=== PATIENT | male | born 1955 | race Caucasian/White ===

== ENCOUNTER → 2019-08-11 | Outpatient (CLI) | payer MEDICARE ==
--- NOTE | 2019-08-11 17:44 | MR ---
EXAMINATION TYPE: MR shoulder RT wo con DATE OF EXAM: 08/11/2019 COMPARISON: HISTORY: Right shoulder pain Technique: Multiplanar, multiecho imaging on a 3.0 Mikayla magnet is performed through the shoulder. Findings: Long head of the biceps tendon is within the bicipital groove. Fluid surrounds the long hea d of the biceps tendon. Moderate tendinosis of the long head of the biceps tendon should be considere d. No significant joint effusion is evident. Glenoid labrum as visualized on this noncontrast study appe ars intact. Rotator cuff tendons are evaluated. There may be a perforation of the anterior portion of the infras pinatus tendon near its insertion. Series 501 image 18 noted tendon or muscle retraction is evident. Fluid in the subacromial bursa and subdeltoid bursa are adjacent to the supraspinatus tendon. Moderat e tendinosis may be present. The acromioclavicular junction is hypertrophied which can contribute to impingement syndrome. Small a mount of fluid is in the subacromial bursa. There is some fluid in the subdeltoid bursa. IMPRESSIONS: 1. There is at least moderate tendinosis of the long head of the biceps tendon and likely of the supr aspinatus tendon. 2. Small perforation at the anterior infraspinatus tendon should be considered.
== END ==
LOC: RADMRIMAIN 12:28
PROVIDERS: ATTEND Orthopaedic Surgery
DX: M75.81 Other shoulder lesions, right shoulder (principal)

== ENCOUNTER 2019-09-07 05:46 | Day surgery (SDC) | payer MEDICARE ==
[2019-09-05 08:47] VITALS: BMI 26.5
--- NOTE | 2019-09-06 14:13 | HP ---
HISTORY AND PHYSICAL DATE OF SURGERY: 09/07/2019 Roger Mayorga is a 63-year-old patient seen with progressive right shoulder pain. We discussed options for treatment. He elected to proceed with arthroscopy. Consent was obtained. PAST MEDICAL HISTORY: Hyperlipidemia. PAST SURGICAL HISTORY: Herniorrhaphy, left knee arthroscopy, knee arthroscopy. DAILY MEDICATIONS: Pravastatin. ALLERGIES: NONE. SOCIAL HISTORY: Denies current tobacco use. PHYSICAL EVALUATION OF RIGHT SHOULDER: Flexion is 140 degrees, abduction is 130 degrees, external rotation is 50 degrees with weakness. There is tenderness along the anterolateral acromion/rotator cuff insertion site. Impingement is positive at 90 degrees. Drop arm sign is positive. His distal neurovascular examination is intact. RADIOGRAPHS: Radiographs of the right shoulder revealed a type II anterior acromion, evidence for acromioclavicular joint osteoarthritis. An MRI scan of the right shoulder revealed impingement, rotator cuff tear, as well as long head biceps tendinitis. IMPRESSION: 1. Right shoulder impingement with rotator cuff tear. 2. Right shoulder acromioclavicular joint osteoarthritis. 3. Right shoulder biceps tendinosis. 4. Hyperlipidemia. PLAN: Right shoulder arthroscopy with subacromial decompression, arthroscopic rotator cuff repair, Amaya procedure, long head biceps tendon release and debridement. MMODL / IJN: [id number] /
[~2019-09-07 05:46] MED LIST: DEXAMETHASONE SOD PHOSPHATE 10 MG/ML 1 ML VIAL IV ONE; LACTATED RINGERS 1,000 ML IV SCH; LIDOCAINE 1% 20 ML VIAL (10MG/ML) FOR IV START INTRADERMA PRN; MIDAZOLAM 2 MG/2 ML VIAL IV PRN; fentaNYL (PF) 50 MCG/ML 2 ML AMP IV PRN; fentaNYL (PF) 50 MCG/ML 2 ML AMP IVP PRN
[2019-09-07] MEDS ORDERED: ONDANSETRON 4 MG/2 ML VIAL IVP ONE (06:30)
[2019-09-07] MEDS ORDERED: MIDAZOLAM 2 MG/2 ML VIAL IVP ONE (06:55)
[2019-09-07] MEDS ORDERED: fentaNYL (PF) 50 MCG/ML 2 ML AMP ONE (07:25)
[2019-09-07] MEDS ORDERED: ROPIVACAINE 5 MG/ML 30 ML VIAL ONE (07:25)
[2019-09-07] MEDS ORDERED: LIDOCAINE 2% (PF) 20 MG/ML 2 ML VIAL ONE (07:25)
[2019-09-07] MEDS ORDERED: GLYCOPYRROLATE 0.2 MG/ML 2 ML VIAL ONE (07:25)
[2019-09-07] MEDS ORDERED: ePHEDrine SULFATE/0.9% NACL/PF 50 MG/5 ML SYRINGE IV ONE (07:25)
[2019-09-07] MEDS ORDERED: LIDOCAINE 1% INJ 10MG/ML (20 ML MDV) ONE (07:25)
[2019-09-07] MEDS ORDERED: NEOSTIGMINE 1 MG/ML 10 ML VIAL ONE (07:25)
[2019-09-07] MEDS ORDERED: SUCCINYLCHOLINE CHLORIDE 100 MG/5 ML SYR IV ONE (07:25)
[2019-09-07] MEDS ORDERED: DEXAMETHASONE SOD PHOSPHATE 4 MG/ML 1 ML VIAL ONE (07:25)
[2019-09-07] MEDS ORDERED: PROPOFOL 10 MG/ML 20 ML VIAL IV ONE (07:25)
[2019-09-07] MEDS ORDERED: ROCURONIUM BROMIDE 10 MG/ML 5 ML VIAL IV ONE (07:25)
[2019-09-07] MEDS ORDERED: LACTATED RINGERS 1,000 ML IV ONE (08:20)
[2019-09-07] MEDS ORDERED: ROPIVACAINE 0.2%-NS ON-Q PUMP 1,090 MG, EMPTY PAIN BALL 1 EACH MISCELLANE PRN (08:40)
--- NOTE | 2019-09-07 08:40 | P.ANPRN ---
Procedure Note - Anesthesia - Nerve Block Performed Right Interscalene Infusion Time Out Performed: Yes Date of Procedure: 09/07/19 Procedure Start Time: 06:50 Procedure Stop Time: 07:08 Location of Patient: PreOp Indication: Acute Post-Operative Pain, Requested by Surgeon Sedation Type: Sedate with meaningful contact maintained Preparation: Sterile Prep, Sterile Dressing Position: Sitting Catheter: Indwelling Needle Types: Blendin Needle Gauge: 18 Ultrasound used to visualize needle placement: Yes Ultrasound used to observe medication spread: Yes Injectate: 0.5% Ropivacaine (see comment for volume) (20 ml + decadron 4 mg) Blood Aspirated: No Pain Paresthesia on Injection Noted: No Resistance on Injection: Normal Image Stored and Saved: Yes Events: Uneventful and Well Tolerated
--- NOTE | 2019-09-07 09:23 | P.OP ---
Date of Procedure: 09/07/19 Preoperative Diagnosis: Right shoulder impingement Postoperative Diagnosis: 1. Right shoulder rotator cuff tear 2. Right shoulder impingement 3. Right shoulder acromioclavicular joint osteoarthritis 4. Right shoulder partial long head biceps tendon tear Procedure(s) Performed: 1. Right shoulder arthroscopic rotator cuff repair 2. Right shoulder arthroscopic subacromial decompression 3. Right shoulder arthroscopic Amaya procedure 4. Right shoulder arthroscopic biceps tenotomy Implants: 44.75 Arthrex swivel lock anchors Anesthesia: GETA, regional (Interscalene catheter) Surgeon: Olvin Ferraro Prep Cook #1: James Fowler Estimated Blood Loss (ml): 8 Pathology: none sent Condition: stable Disposition: PACU Indications for Procedure: 63-year-old patient seen with progressive right shoulder pain. After treatment options were discussed, he elected to proceed with arthroscopy. Operative Findings: See description of procedure Description of Procedure: Patient underwent an interscalene block/catheter by department of anesthesia for postoperative pain management. The patient was then taken to the operative suite. The patient underwent a general anesthetic by the department of anesthesia. The patient was placed into a lateral position and secured. There was appropriate padding of the bony prominence. Right shoulder was then prepped and draped in normal sterile orthopedic fashion. We placed the extremity in 10 pounds of longitudinal traction. A posterior incision was now made for a posterior working portal site. The trocar and cannula were inserted into the glenohumeral joint. Arthroscopy was initiated. Spinal needle was now inserted anteriorly, to ascertain the anterior working portal site. An incision was now made in that area, a trocar was inserted followed by a probe. There was some partial tearing long head biceps tendon. There was a rotator cuff tear visualized from glenohumeral side. The labrum appeared stable. There were some mild chondromalacia changes of the glenohumeral joint. I performed an arthroscopic biceps tenotomy. I again probed the residual labrum and it was stable. Instruments now removed from the glenohumeral joint. Utilizing the posterior working portal site, the trocar and cannula were inserted into the subacromial space. Arthroscopy initiated. I made an incision 2 fingerbreadths lateral to the acromion. I introduced my trocar followed by my ArthroCare ablator. I now began ablating thick subacromial bursal tissue, which exposed the undersurface of the anterior acromion. There was diminished subacromial space. There was a very prominent anterior acromion. A motorized bur was introduced and a subacromial decompression was performed. I also excised some osteophytes off the inferior aspect of the distal clavicle. The AC joint was visualized and noted to be fairly arthritic. The motorized bur was introduced in the anterior portal site and a Aamya procedure was performed without difficulty, decompressing the AC joint nicely. I turned my attention to the rotator cuff. There was a 2.5 cm rotator cuff tear. I debrided the margins getting down to stable tendon tissue. I introduced my motorized bur and abraded the footprint area, getting some petechial bleeding. I now made an accessory portal site off the lateral aspect of the acromion. I punched 2 holes medial for medial row fixation with the assistance of Zi AGUIRRE carefully tapping the punch with a mallet as I held the punch and the camera. I now introduced both anchors into the pre-punched holes and Zi AGUIRRE tapped them with the mallet as I held anchors and the camera. Zi AGUIRRE now screwed the anchors in place a while I held the anchor guide and camera. All 8 limbs of suture were now passed through good bites of rotator cuff tendon. I now punched 2 holes for lateral row fixation again I held the punch and camera while Zi AGUIRRE used a mallet to tap in the punch. We now passed sutures through both anchors and individually I introduced the anchors into the pre-punch holes I held the anchor guide in position with one hand holding the camera with the other hand while Zi AGUIRRE tensioned the sutures and screwed in the anchors one at a time. All residual suture limbs were now clipped. We had good compression of the tendon along the entire footprint. I injected 1 mL Renyte intra-articular. Instruments now removed from the portal sites. All portal sites were approximated with nylon suture. Sterile dressings were applied followed by a shoulder immobilizer. James AGUIRRE assisted in this complex case. The patient was awakened, transferred to a bed, and taken to recovery in stable condition.
[2019-09-07 09:33] VITALS: TEMP 96.8
[2019-09-07 11:09] VITALS: BP 136/85; PULSE 61; RESP 18
== END 2019-09-07 11:42 | disposition home or self-care (01) ==
LOC: OR 05:46
PROVIDERS: ATTEND Orthopaedic Surgery
DX: M75.101 Unspecified rotator cuff tear or rupture of right shoulder, not specified as traumatic (principal); M75.41 Impingement syndrome of right shoulder; M19.011 Primary osteoarthritis, right shoulder; S46.111A Strain of muscle, fascia and tendon of long head of biceps, right arm, initial encounter; X58.XXXA Exposure to other specified factors, initial encounter; E78.5 Hyperlipidemia, unspecified; Z79.899 Other long term (current) drug therapy; K52.9 Noninfective gastroenteritis and colitis, unspecified; M94.211 Chondromalacia, right shoulder; M25.711 Osteophyte, right shoulder
CPT/HCPCS: 29826; 29827; 29824; 64416; 76942; C1713 ×2; Q4212; J2250; J1100 ×2; J2710; J0690; J2405; J2001 ×2; J3010; J2795 ×2; J0330; J2704; 64415